=== PATIENT | male | born 1970 | race African-American/Black ===

== ENCOUNTER 2018-07-07 13:59 | Outpatient (CLI) | payer OTHER ==
--- NOTE | 2018-07-09 23:11 | ULT ---
DATE OF PROCEDURE: 07/07/18 Bilateral lower extremity arterial Doppler examination was performed 07/07/18. On the right, waveforms are triphasic throughout with an ankle-brachial index of 0.84. On the left, waveforms are triphasic throughout with an ankle-brachial index of 0.97. ASSESSMENT: Normal arterial Doppler exam.
== END 2018-07-07 14:00 | disposition home or self-care (01) ==
LOC: ULT 13:59
PROVIDERS: ATTEND Family Medicine
DX: L97.519 Non-pressure chronic ulcer of other part of right foot with unspecified severity (principal)
CPT/HCPCS: 36415; 80053; 83036; 93922